=== PATIENT | male | born 1950 | race Caucasian/White ===

== ENCOUNTER 2019-10-04 13:10 | Outpatient (CLI) | payer MEDICARE, SELFPAY ==
--- NOTE | ~2019-10-04 | MR_ITS ---
EXAMINATION: MR shoulder RT wo con DATE: 10/04/2019 14:25 INDICATION: Unspecified injury of right shoulder and upper arm. Right shoulder pain. TECHNIQUE: Magnetic resonance imaging (MRI) of the right shoulder was performed without intravenous c ontrast. Sequences included axial PD-weighted FS FSE, coronal oblique PD-weighted FS FSE and T2-weigh alondra FS FSE, and sagittal oblique T2-weighted FS FSE and T1-weighted FSE. COMPARISON: None. FINDINGS: Coracoacromial arch: The acromion undersurface is curved in morphology (type II). There is severe acromioclavicular joint osteoarthritis including inferiorly directed osteophytes. Subacromial spurring is noted. There is mil d subacromial/subdeltoid bursitis. Rotator cuff: There is moderate supraspinatus tendinopathy and mild infraspinatus tendinopathy. Teres minor tendon is normal. There is severe subscapularis tendinopathy with small interstitial tear. There is mild fat ty atrophy of teres minor muscle belly, consistent with quadrilateral space syndrome. Biceps tendon and glenoid labrum: There is a complete tear of biceps tendon, which is absent from the bicipital groove. There is a tear of the superior labrum from 10:00 to 12:00 (SLAP tear). Fluid: There is a moderate-sized glenohumeral joint effusion. Bones/cartilage: There is deep partial thickness cartilage loss of anteroinferior and central glenoid with mild subcho ndral edema-like marrow signal intensity. There is shallow partial-thickness cartilage loss of ciarra l head. Marginal osteophytes are noted. There is bone marrow edema in lesser tuberosity. IMPRESSION: 1. Severe rotator cuff tendinopathy with small interstitial tear of subscapularis tendon. 2. Moderate glenohumeral joint chondrosis. 3. Complete tear of proximal biceps tendon. 4. Severe osteoarthritis of acromioclavicular joint. 5. Mild subacromial/subdeltoid bursitis. 6. Moderate-sized glenohumeral joint effusion. 7. Mild fatty atrophy of teres minor muscle belly, consistent with quadrilateral space syndrome. Reviewed, dictated and finalized at location A. IMPRESSION: 1. Severe rotator cuff tendinopathy with small interstitial tear of subscapular is tendon. 2. Moderate glenohumeral joint chondrosis. 3. Complete tear of proximal biceps tendon. 4. Severe osteoarthritis of acromioclavicular joint. 5. Mild subacromial/subdeltoid bursitis. 6. Moderate-sized glenohumeral joint effusion. 7. Mild fatty atrophy of teres minor muscle belly, consistent with quadrilatera l space syndrome.
== END 2019-10-04 13:11 | disposition home or self-care (01) ==
LOC: ANHIMG 13:18
PROVIDERS: PCP Family Medicine; Visit Provider Physician Assistant Medical
DX: S46.211A Strain of muscle, fascia and tendon of other parts of biceps, right arm, initial encounter (principal); X58.XXXA Exposure to other specified factors, initial encounter; M19.011 Primary osteoarthritis, right shoulder; M75.51 Bursitis of right shoulder; M25.411 Effusion, right shoulder
CPT/HCPCS: 73221

== ENCOUNTER 2020-04-23 10:56 | Outpatient (CLI) | payer MEDICARE, SELFPAY ==
--- NOTE | ~2020-04-23 | XR_ITS ---
EXAMINATION: XR lumbar spine 6V w bending DATE: 04/23/2020 11:19 INDICATION: Low back pain TECHNIQUE: Anteroposterior, lateral in neutral, flexion and extension, and bilateral oblique views of the lumbar spine, and cone-down lateral view of the lumbosacral junction were obtained. COMPARISON: None. FINDINGS: There are 2 mm of retrolisthesis of L4 on L5. No laxity is present with flexion or extensio n. The vertebral body heights are normal. There is mild loss of intervertebral disc space height at L 1-2 and L2-3. There is advanced facet osteoarthritis in the lower lumbar spine. Small degenerative os teophytes project from the anterior endplates of multiple vertebral bodies. Stones measuring up to 4 mm are noted in the left kidney. The bowel gas pattern is normal. IMPRESSION: 1. Mild lumbar spondylosis. 2. Left nephrolithiasis. Reviewed, dictated and finalized at location A. BALL INSPECTOR
== END 2020-04-23 10:57 | disposition home or self-care (01) ==
LOC: ANHIMG 11:03
PROVIDERS: PCP Family Medicine; Visit Provider Family Medicine
DX: M54.41 Lumbago with sciatica, right side (principal); G89.29 Other chronic pain; M47.896 Other spondylosis, lumbar region; N20.0 Calculus of kidney
CPT/HCPCS: 72114

== ENCOUNTER 2020-05-11 14:20 | Outpatient (CLI) | payer MEDICARE, SELFPAY ==
--- NOTE | ~2020-05-11 | MR_ITS ---
EXAMINATION: MR lumbar spine wo con EXAM DATE: 05/11/2020 15:07 INDICATION: Right leg pain, radiculopathy. Low back pain. TECHNIQUE: Multi-sequential, multiplanar MR images of the lumbar spine were obtained without contrast . Sagittal T1, T2, T2 fat saturation images. Axial T2 weighted images. There is no prior study for comparison. FINDINGS: There is moderate disc disease L1-2, mild at the other lumbar levels. There is a 10 mm syno vial cyst projecting into the spinal canal from the left L4-5 facet joint contributing to severe cent ral canal stenosis at that level. No spondylolysis. The conus medullaris terminates at the L1 level a nd has normal signal intensity and morphology. There is 2 mm retrolisthesis L1 on L2. There are no s uspicious marrow signal abnormalities. Paraspinal soft tissue is unremarkable. Level by level evaluation: T12-L1: There is a minimal diffuse disc bulge. Facet arthropathy: Mild. Neural foraminal stenosis: No stenosis. Central canal stenosis: No stenosis. L1-L2: There is a mild diffuse disc bulge. Facet arthropathy: Mild. Neural foraminal stenosis: Mild bilateral. Central canal stenosis: Mild. L2-L3: There is a mild to moderate diffuse disc bulge. Facet arthropathy: Mild to moderate. Neural foraminal stenosis: Mild bilateral. Central canal stenosis: Mild. L3-L4: There is a moderate diffuse disc bulge. Facet arthropathy: Moderate to severe. Ligamentum flavum enlargement . Neural foraminal stenosis: Moderate bilateral. Central canal stenosis: Moderate. L4-L5: There is a moderate diffuse disc bulge. Facet arthropathy: Severe . Ligamentum flavum enlargement. Neural foraminal stenosis: Moderate bilateral. Central canal stenosis: Severe. L5-S1: There is a moderate diffuse disc bulge. Facet arthropathy: Severe right, moderate to severe left. Neural foraminal stenosis: Moderate to severe bilateral, right greater than left. Central canal stenosis: Mild to moderate. IMPRESSION: 1. L4-5 severe central canal stenosis from bulge, arthropathy, and large left synovial cyst. 2. Neural foramen are most narrowed at L5-S1. Reviewed, dictated and finalized at location A. IT SPECIALIST
== END 2020-05-11 14:21 | disposition home or self-care (01) ==
PROVIDERS: PCP Family Medicine; Visit Provider Nurse Practitioner Family
DX: M54.10 Radiculopathy, site unspecified (principal); M48.061 Spinal stenosis, lumbar region without neurogenic claudication; M71.38 Other bursal cyst, other site
CPT/HCPCS: 72148

== ENCOUNTER 2020-05-21 13:08 | Outpatient (CLI) | payer MEDICARE, SELFPAY ==
[2020-05-21 14:15] LABS: Basophils Percent Auto 0.4 % (0.2-1.2); Eosinophils Absolute Auto 0.1 K/mm3 (0-0.3); Eosinophils Percent Auto 0.7 % (0-4.4); Hematocrit 42.3 % (42.0-52.0); Hemoglobin 14.6 g/dL (14.0-18.0); Immature Granulocyte Absolute 0.04 K/mm3 (0.00-0.031); Immature Granulocyte Percent A 0.6 % (0-0.5); Lymphocytes Percent Auto 20.4 % (18.3-44.2); Mean Corpuscular HGB Conc 34.5 g/dl (32-36); Mean Corpuscular Hemoglobin 32.8 pg (26-34); Mean Corpuscular Volume 95.1 fl (80-100); Mean Platelet Volume 9.9 fl (7.4-10.4); Monocytes Absolute Auto 0.3 K/mm3 (0.1-0.6); Monocytes Percent Auto 4.1 % (2.6-8.5); Neutrophils Absolute Auto 5.1 K/mm3 (1.3-6.7); Neutrophils Percent Auto 73.8 % (45.5-73.1); Platelet Count Result 177 k/mm3 (150-375); Red Blood Count 4.45 M/mm3 (4.6-6.20); Red Cell Distribution Width 11.9 % (11.5-14.5); White Blood Count 6.9 K/mm3 (4.5-10.0)
[2020-05-21 14:23] LABS: Alanine Aminotransferase 46 U/L (4-50); Albumin Level 4.2 g/dL (3.5-5.1); Alkaline Phosphatase 65 U/L (38-126); Anion Gap 4 mmol/L (8-16); Aspartate Amino Transferase 36 U/L (17-59); Bilirubin,Total 0.5 mg/dL (0.2-1.3); Blood Urea Nitrogen 9 mg/dL (9-20); Calcium 9.2 mg/dL (8.4-10.2); Carbon Dioxide 33 mmol/L (22-30); Chloride 100 mmol/L (98-107); Estimated Glomerular Filt Rate > 60; Glucose 154 mg/dL (75-110); Potassium 3.7 mmol/L (3.4-5.0); Sodium 137 mmol/L (137-145)
[2020-05-24 07:55] LABS: FSH 9.1 mIU/mL (1.6-8.0); LH 3.2 mIU/mL (1.6-15.2)
[2020-05-25 13:34] LABS: Testosterone Free 55.9 pg/mL (35.0-155.0); Testosterone Total 508 ng/dL (250-1100)
== END 2020-05-21 13:09 | disposition home or self-care (01) ==
PROVIDERS: PCP Family Medicine; Visit Provider Family Medicine
DX: R61 Generalized hyperhidrosis (principal)
CPT/HCPCS: 36415; 80053; 83001; 83002; 84402; 84403; 84443; 85025

== ENCOUNTER 2020-07-12 13:09 | Outpatient (CLI) | payer MEDICARE, SELFPAY ==
--- NOTE | 2020-07-12 13:30 | ECG_ITS ---
Measurements Intervals [place] Rate: 64 P: 54 VT: 149 QRS: 6 QRSD: 97 T: 52 QT: 384 QTc: 396 Interpretive Statements SINUS RHYTHM NONSPECIFIC T-WAVE ABNORMALITY- INFERIOR LEADS BASELINE WANDER- V3 BORDERLINE ECG Electronically Signed On 07-12-2020 14:35:37 CDT by Rom Ruiz D.O.
[2020-07-12 13:42] LABS: Hematocrit 40.1 % (42.0-52.0); Hemoglobin 13.7 g/dL (14.0-18.0); Mean Corpuscular HGB Conc 34.2 g/dl (32-36); Mean Corpuscular Hemoglobin 32.6 pg (26-34); Mean Corpuscular Volume 95.5 fl (80-100); Mean Platelet Volume 9.8 fl (7.4-10.4); Platelet Count Result 189 k/mm3 (150-375); Red Cell Distribution Width 11.9 % (11.5-14.5); White Blood Count 5.1 K/mm3 (4.5-10.0)
[2020-07-12 13:52] LABS: Alanine Aminotransferase 33 U/L (4-50); Albumin Level 4.4 g/dL (3.5-5.1); Alkaline Phosphatase 60 U/L (38-126); Anion Gap 5 mmol/L (8-16); Aspartate Amino Transferase 36 U/L (17-59); Bilirubin,Total 0.7 mg/dL (0.2-1.3); Blood Urea Nitrogen 17 mg/dL (9-20); Calcium 9.2 mg/dL (8.4-10.2); Carbon Dioxide 29 mmol/L (22-30); Chloride 105 mmol/L (98-107); Estimated Glomerular Filt Rate 60; Glucose 90 mg/dL (75-110); Potassium 4.1 mmol/L (3.4-5.0); Sodium 139 mmol/L (137-145)
== END 2020-07-12 13:10 | disposition home or self-care (01) ==
PROVIDERS: PCP Family Medicine; Visit Provider Nurse Practitioner Family
DX: Z01.818 Encounter for other preprocedural examination (principal)
CPT/HCPCS: 36415; 80053; 85027; 93005

== ENCOUNTER 2020-09-30 13:38 | Outpatient (CLI) | payer MEDICARE, SELFPAY ==
[2020-09-30 15:25] LABS: SARS-CoV-2 RNA PCR Negative (Negative)
== END 2020-09-30 13:39 | disposition home or self-care (01) ==
LOC: CHSLAB 13:41
PROVIDERS: PCP Family Medicine; Visit Provider Nurse Practitioner Family
DX: J02.9 Acute pharyngitis, unspecified (principal); Z20.822 Contact with and (suspected) exposure to COVID-19
CPT/HCPCS: C9803; U0003; U0005

== ENCOUNTER 2022-08-01 09:38 | Outpatient (CLI) | payer MEDICARE, SELFPAY ==
--- NOTE | 2022-08-01 | ECG_ITS ---
Measurements Intervals [place] Rate: 53 P: 61 SD: 152 QRS: 32 QRSD: 101 T: 72 QT: 416 QTc: 393 Interpretive Statements SINUS BRADYCARDIA CANNOT RULE OUT SEPTAL INFARCT, AGE INDETERMINATE BORDERLINE T WAVE ABNORMALITY- HIGH LATERAL LEADS ABNORMAL ECG COMPARED TO ECG 07/12/2020 13:39:20 SINUS BRADYCARDIA NOW PRESENT MYOCARDIAL INFARCT FINDING NOW PRESENT Electronically Signed On 08-01-2022 10:37:09 CDT by Rom Ruiz D.O.
[2022-08-01 10:10] LABS: Hematocrit 39.7 % (42.0-52.0); Hemoglobin 13.6 g/dL (14.0-18.0); Mean Corpuscular HGB Conc 34.3 g/dl (32-36); Mean Corpuscular Hemoglobin 32.9 pg (26-34); Mean Corpuscular Volume 95.9 fl (80-100); Mean Platelet Volume 9.4 fl (7.4-10.4); Platelet Count Result 150 k/mm3 (150-375); Red Blood Count 4.14 M/mm3 (4.6-6.20)
[2022-08-01 10:31] LABS: Alanine Aminotransferase 30 U/L (6-50); Albumin Level 4.3 g/dL (3.5-5.1); Alkaline Phosphatase 65 U/L (38-126); Anion Gap 6 mmol/L (8-16); Aspartate Amino Transferase 34 U/L (17-59); Bilirubin,Total 0.9 mg/dL (0.2-1.3); Blood Urea Nitrogen 11 mg/dL (9-20); Calcium 8.8 mg/dL (8.4-10.2); Carbon Dioxide 28 mmol/L (22-30); Chloride 104 mmol/L (98-107); Estimated Glomerular Filt Rate > 60; Glucose 86 mg/dL (65-110); Potassium 4.1 mmol/L (3.4-5.0); Sodium 138 mmol/L (137-145)
[2022-08-01 11:00] LABS: Prostate Specific Antigen 4.6 ng/mL (< OR = 4.0)
== END 2022-08-01 09:39 | disposition home or self-care (01) ==
PROVIDERS: PCP Family Medicine; Visit Provider Nurse Practitioner Family
DX: Z01.818 Encounter for other preprocedural examination (principal); Z12.5 Encounter for screening for malignant neoplasm of prostate
CPT/HCPCS: 36415; 80053; 84153; 85027; 93005; G0103

== ENCOUNTER 2024-05-24 19:33 | Outpatient (CLI) | payer MEDICARE, SELFPAY ==
--- OUTSIDE RECORDS SUMMARY | 2024-05-24 19:38 | XMS_ITS | Encounter Summary ---
Author Organization [facility] Address [address] [place] [address] Care Team Providers Care Access Service Representative Name Role Phone Davida Power MD Primary Care Provider Encounter Details Date Type Department Care Team (Late st Contact Info) Description 09/29/2022 Lab Requisition [facility] - DermPath Lab [address] [place] [address] Aldo Wallis MD [address] [place] [address] Social History Tobacco Use Types Packs/Day Years Used Date Smoking Tobacco: Former Cigarettes Q uit: 03/12/1974 Smokeless Tobacco: Never Alcohol Use Standard Drinks/Week Comments Yes 1 (1 standard drink = 0.6 oz pur e alcohol) Sex and Gender Information Value Date Recorded Sex Assigned at Not on file Gender Identity Not on file Sexual Orientation Not on file documented as of this encounter Plan of Treatment Not on file documented as of this encounter Procedures Procedure Name Priority Date/Time Associated Diagnosis Comments DERMATOPATHOLOGY Routine 09/27/2022 12:0 0 AM CDT documented in this encounter Results * DERMATOPATHOLOGY (09/27/2022 12:00 AM CDT) Case Report Dermatopathology Report Case: [id number] Authorizing Provider: Aldo Wallis MD Collected: 09/27/2022 12:00 AM Ordering Location: [facility] Derm[facility] Lab Received: 09/29/2022 11:56 AM Pathologist: Quyen Fulton MD Specimen: Skin, left shoulder 2:41 PM CDT DERMATOPATHOLOGY LABORATORY Final Diagnosis Specimen A. 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 Check Margins. 3 2:41 PM T DERMATOPATHOLOGY LABORATORY Gross Description Specimen A: Received is one formalin filled container labeled with the patient's name and designated left shoulder. The specimen consists of a shave biopsy measuring 4x3x2 mm. Jar 0. 3 2:41 PM T DERMATOPATHOLOGY LABORATORY Microscopic Description Specimen A. SKIN, left shoulder: There is hyperkeratosis alternating with parakeratosis. There is epidermal hyperplasia with disorderly maturation of keratinocytes with nuclear pleomorphism confined to the lower half of the epidermis. This lesion is present at the margin of the specimen. The dermis shows a band-like, chronic inflammatory infiltrate with occasional apoptotic keratinocytes and some basal vacuolar alteration. Additional deeper sections were obtained and reviewed. 3 2:41 PM T DERMATOPATHOLOGY LABORATORY Disclaimer An external and internal positive and negative controls are appropriate for the histochemical, immunohistochemical and immunofluorescence stain(s) in this case (if any), except where stated explicitly. The performance characteristics of the stain(s) cited in this report were developed and its performance characteristic determined by the Dermatopathology Laboratory at [facility], directed by Dr. Denny Zapata. These tests need not be, and therefore are not, approved by the [place] Food and Drug Administration. The tests are used for clinical purposes. Billing Codes Specimen Charges Stain Charges 52740 1 3 2:41 PM CDT DERMATOPATHOLOGY LABORATORY Embedded Images 3 2:41 PM CDT DERMATOPATHOLOGY LABORATORY Pathology/Cytolog y TISSUE SPECIMEN FROM SKIN / Unknown 09/27/2022 09/29/2022 11:56 AM CDT Aldo Wallis MD LAB - PATHOLOGY/CYTO LOGY ORDERABLES DERMATOPATHOLOGY LABORATORY [facility] - Department of Dermatology [address] [phone] documented in this encounter Visit Diagnoses Not on filedocumented in this encounter Care Teams Access Service Representative Relationship Specialty Start Date End Date Davida Power MD [address] [place] [phone] PCP - General 09/03/13 documented as of this encounter
--- OUTSIDE RECORDS SUMMARY | 2024-05-24 19:38 | XMS_ITS | Clinical Summary ---
Author Organization [facility] Address [address] [place] [address] Care Team Providers Care Insurance Healthcare Representative Name Role Phone Davida Power MD Primary Care Provider Source Comments [facility],non-owned Affiliates and Associated Physician Practices is amultiple site organization consisting of ambulatory clinics and hospital sitesin [place], [place], [place] and [place]. This disclosure is being madepursuant to the Care Everywhere program and may not contain all information available regarding this patient. Last updated 17.[facility] Medications * Be aware that medications may not be up to date on this document. Alwaysverify current medications with the patient. Medication Sig Dispensed Refills Start Date End Date Status tamsulosin (FLOMAX) 0.4 MG capsule 06/20/2016 Active Misc Natural Products (GERMANIUM) 10 MG Take by mouth. 06/29/2016 Act vianca terbinafine (LAMISIL) 250 MG tablet 05/25/2016 Active aspirin EC (ECOTRIN) 325 MG tablet Take by mouth. 06/29/2016 Active [place]-3 Fatty Acids (FISH OIL) 1000 MG capsule Take by mouth. 06/29/2016 Active diclofenac sodium EC (VOLTAREN) 75 MG tablet 06/09/2016 A ctive triamcinolone (NASACORT AQ) 55 MCG/ACT nasal inhaler 06/29/2016 Active Family History Medical History Relation Name Comments Asthma Brother Asthma Father Arthritis - Rheumatoid Mother Cancer Mother Diabetes Mother Glaucoma Mother Hearing Loss Mother Heart Disease Mother High Cholesterol Mother Hypertension Mother Kidney Disease Mother Osteoporosis Mother Relation Name Status Comments Brother Father Mother Social History Tobacco Use Types Packs/Day Years Used Date Smoking Tobacco: Former Cigarettes Q uit: 03/12/1974 Smokeless Tobacco: Never Alcohol Use Standard Drinks/Week Comments Yes 1 (1 standard drink = 0.6 oz pur e alcohol) Sex and Gender Information Value Date Recorded Sex Assigned at Not on file Gender Identity Not on file Sexual Orientation Not on file Last Filed Vital Signs Vital Sign Reading Time Taken Comments Blood Pressure 128/83 06/29/2016 4:52 PM CDT Pulse 59 06/29/2016 4:52 PM CDT Temperature - - Respiratory Rate - - Oxygen Saturation - - Inhaled Oxygen Concentration - - Weight 88.5 kg (195 lb) 06/29/2016 4:52 PM CDT Height 175.3 cm (5' 9 ) 06/29/2016 4:52 PM CDT Body Mass Index 28.8 06/29/2016 4:52 PM CDT Plan of Treatment Health Maintenance Due Date Last Done Comments COLOGUARD (AGES 45-75) - COL ON CA SCREENING 1950 COLON MONITORING 1952 COLONOSCOPY - COLON CA SCREENING 1952 CT COLONOGRAPHY - COLON CA SCREENING 1950 Colorectal Cancer Screening 1950 FIT - COLON CA SCREENING 1952 FLEX SIG - COLON CA SCREENING 1952 LIPID TESTING 1950 HEPATITIS C SCREENING 01/10/1970 DTAP/TDAP/TD VACCINES (1 - Tdap) 01/14/1971 PNEUMOCOCCAL VACCINE 50+ (1 of 1 - PCV) 01/14/2002 ZOSTER VACCINE (1 of 2) 01/14/2002 AAA SCREENING 01/14/2017 COVID-19 VACCINE ( - 2023-2 5 season) 2023 INFLUENZA VACCINE (#1) 2023 DEPRESSION SCREENING 03/12/2024 MEDICARE AWV CALENDAR YEAR 2024 Respiratory Syncytial Virus (RSV) Vaccine Pt: or over 60 yrs (1 - 1-dose 75+ series) 01/14/2027 HEPATITIS B VACCINE Aged Out No longe r eligible based on patient's age to complete this topic HIB VACCINE Aged Out No longer eligi ble based on patient's age to complete this topic HPV VACCINE Aged Out No longer eligi ble based on patient's age to complete this topic MENINGOCOCCAL (Group B) VACC INE SHARED DECISION-MAKING Aged Out No longer eligibl e based on patient's age to complete this topic MENINGOCOCCAL GROUPS A/C/Y/W VACCINE Aged Out No longer eligible b ased on patient's age to complete this topic Care Teams Insurance Healthcare Representative Relationship Specialty Start Date End Date Davida Power MD [address] [place] [phone] PCP - General 09/03/13
--- OUTSIDE RECORDS SUMMARY | 2024-05-24 19:38 | XMS_ITS | Clinical Summary ---
Author Organization [facility] Address [facility] [place] [address] Care Team Providers Care Director Of Manufacturing Operations Name Role Phone Aldo Wallis MD Primary Care Provider [phone] Allergies No known active allergies Medications methylphenidat e CR (METADATE ER) 10 MG tabletIndicati ons:adhd Take 1 tablet (10 mg total) by mouth every morning. Indications: adhd Active atorvastatin (LIPITOR) 40 MG tabletIndicati ons:cholestero l Take 1 tablet (40 mg total) by mouth every morning. Indications: cholesterol Active gabapentin (NEURONTIN) 300 MG capsuleIndicat ions:arthritis Take 1 capsule (300 mg total) by mouth 4 (four) times daily. Indications: arthritis Active diclofenac EC (VOLTAREN) 75 MG tabletIndicati ons:arthritis Take 1 tablet (75 mg total) by mouth 2 (two) times daily. Indications: arthritis Active levothyroxine (SYNTHROID) 25 MCG tabletIndicati ons:thyroid Take 1 tablet (25 mcg total) by mouth every morning. Indications: thyroid Active fexofenadine (LORRI) 180 MG tablet Take 1 tablet (180 mg total) by mouth as needed for Allergies. Active Multiple Vitamins-Silica Filter Operator als (MULTIVITAMIN ADULTS 50+) TabIndications :supplement Take 1 tablet by mouth every evening. Indications: supplement Active prednisoLONE acetate (PRED FORTE) 1 % ophthalmic suspensionIndi cations:post op surgery drop Place 1 drop into the left eye see administration instructions. Indications: post op surgery drop Active ketorolac (ACULAR) 0.5 % ophthalmic solutionIndica tions:post op surgery drop Place 1 drop into the left eye 2 (two) times daily. Indications: post op surgery drop Active Active Problems No known active problems Encounters Date Type Department Care Team Description 04/08/2024 8:21 AM EDUCATIONAL ASSISTANT - 04/08/2024 8:50 AM EDUCATIONAL ASSISTANT Surgery [address] [address] Gregory Hays Jr., MD CATARACT REMOVAL WITH IOL IMPLANT 04/08/2024 8:21 AM EDUCATIONAL ASSISTANT Anesthesia Event [address] [address] Yolanda Hendrix SWAGING MACHINE OPERATOR 04/08/2024 7:21 AM EDUCATIONAL ASSISTANT - 04/08/2024 9:09 AM EDUCATIONAL ASSISTANT Hospital Encounter [address] [address] Gregory Hays Jr., MD Discharge Disposition: Home or Self Care (Routine Discharge) 04/08/2024 Travel 04/02/2024 8:48 AM EDUCATIONAL ASSISTANT Anesthesia Event [address] [address] Andie Jones, SWAGING MACHINE OPERATOR 04/02/2024 8:44 AM EDUCATIONAL ASSISTANT - 04/02/2024 9:13 AM EDUCATIONAL ASSISTANT Surgery [address] [address] Gregory Hays Jr., MD CATARACT REMOVAL WITH IOL IMPLANT 04/02/2024 7:29 AM EDUCATIONAL ASSISTANT - 04/02/2024 9:34 AM EDUCATIONAL ASSISTANT Hospital Encounter [address] [address] Gregory Hays Jr., MD Discharge Disposition: Home or Self Care (Routine Discharge) 04/02/2024 Travel from Last 3 Months Family History Medical History Relation Comments Heart Disease Father Hyperlipidemia Father MD Father Cancer Mother Breast Diabetes Mother Relation Status Comments Father (Age 43) MD Mother Social History Tobacco Use Types Packs/Day Years Used Date Smoking Tobacco: Never Smokeless Tobacco: Never Tobacco Cessation:Counseling Given: Not Answered Alcohol Use Standard Drinks/Week Comments Yes 0 (1 standard drink = 0.6 oz pur e alcohol) Occasionally Sex and Gender Information Value Date Recorded Sex Assigned at Male 03/26/2024 10:51 AM EDUCATIONAL ASSISTANT Legal Sex Male 6:59 PM CDT Gender Identity Not on file Sexual Orientation Not on file Last Filed Vital Signs Vital Sign Reading Time Taken Comments Blood Pressure 125/81 04/08/2024 9:00 AM EDUCATIONAL ASSISTANT Pulse 58 04/08/2024 9:00 AM EDUCATIONAL ASSISTANT Temperature 36.8 C (98.2 F) 04/08/2024 8:45 AM EDUCATIONAL ASSISTANT Respiratory Rate 18 04/08/2024 9:00 AM EDUCATIONAL ASSISTANT Oxygen Saturation 97% 04/08/2024 9:00 AM EDUCATIONAL ASSISTANT Inhaled Oxygen Concentration - - Weight 77 kg (169 lb 12.1 oz) 04/08/2024 7:52 AM EDUCATIONAL ASSISTANT Height 173 cm (5' 8.11 ) 04/08/2024 7:52 AM EDUCATIONAL ASSISTANT Body Mass Index 25.73 04/08/2024 7:52 AM EDUCATIONAL ASSISTANT Plan of Treatment Health Maintenance Due Date Last Done Comments Colorectal Cancer Screening Colonoscopy (10 Years) 1952 Hepatitis C 01/14/1970 DTaP, Tdap and Td Vaccines ( 1 - Tdap) 01/14/1971 Zoster Vaccines (1 of 2) 01/14/2002 Annual Medicare Wellness Visit 01/14/2017 Pneumococcal Vaccine: 65+ Years (1 of 1 - PCV) 01/14/2017 COVID-19 Vaccine (3 - 2023-2 5 season) 2023 05/21/2020, 04/30/2020 Influenza Adult (#1) 2023 RSV Immunization or 60+ Years (1 - 1-dose 75+ series) 01/14/2027 Meningococcal B Vaccine Aged Out No l onger eligible based on patient's age to complete this topic Meningococcal Vaccine Aged Out No roma avelina eligible based on patient's age to complete this topic RSV Immunizations Under 20 Months Aged Out No longer eligible b ased on patient's age to complete this topic Medical Devices Implanted Type Area Rent Control Office Manager Device Identifier Shelf Expiration Date Model / Serial / Lot Iol Phillip [id number] - [id number] Implanted:Qty: 1 on 04/02/2024 by Gregory Hays Jr., MD at [facility] Lens Right: Eye [employer] [id number] 11/17/2027 [id number] / [id number] / Description:Confirmed with vadim hays and epic Iol Phillip [id number] - [id number] Implanted:Qty: 1 on 04/08/2024 by Gregory Hays Jr., MD at [facility] Lens Left: Eye [employer] [id number] 12/09/2026 [id number] / [id number] / Description:Confirmed with vadim hays and epic Procedures Procedure Name Priority Date/Time Associated Diagnosis Comments REMV CATARACT EXTRACAP,INSERT LENS 04/08/2024 8:20 AM EDUCATIONAL ASSISTANT CATARACT Case Notes [place] SY60WF 19.0 IOL REMV CATARACT EXTRACAP,INSERT LENS 04/02/2024 8:44 AM EDUCATIONAL ASSISTANT CATARACT Case Notes [place] SY60WF 20.0 IOL from Last 3 Months Insurance Advance Directives * Full Code (Latest Code Status on File) Date Activated Date Inactivated Comments 04/08/2024 8:56 AM 04/08/2024 11:16 AM * Full Code Date Activated Date Inactivated Comments 04/02/2024 9:26 AM 04/02/2024 11:39 AM Care Teams Director Of Manufacturing Operations Relationship Specialty Start Date End Date Aldo Wallis MD [address] [place] [address] PCP - General FAMILY PRACTICE 03/26/24
--- OUTSIDE RECORDS SUMMARY | 2024-05-24 19:38 | XMS_ITS | Data Portability ---
Author Organization [facility], [address] [place]rology ([place]) Address [address] [place] [address] Care Team Providers Care Batch Plant Supervisor Name Role Phone JOSE TRIANA Primary Care Provider Assessment Encounter Date Assessment Date Assessment LastModified by Organization Details LastModified Time 08/02/2023 08/02/2023 1. Berry catheter to be removed when the urine is consistently clear. 2. [place] 5/325 every eight hours as needed per request of the patient s . 3. Silodosin 10 mg daily. cristopher [email or web address] Not available 08/08/2023 11:53:58 09/03/2023 09/03/2023 I advised the patient to have a trial of discontinuing the alfuzosin. I also gave him a month supply of Myrbetriq 25 mg daily. The patient will return in one month for an evaluation of symptoms and for an exam. cristopher [email or web address] Not available 09/04/2023 12:06:31 10/09/2023 10/09/2023 A 6-week trial of Gemtesa 75 mg every evening. The patient will return in 5 weeks for an evaluation of symptoms and for an exam along with postvoid residual volume estimate. ra lockhart Not available 10/12/2023 15:42:39 Plan of Treatment Reminders Order Date Submit Date Provider Last Modified By Organization Details Last Modified Time Details Appointments None record ed. Lab None record ed. Referral None record ed. Procedures None record ed. Surgeries None record ed. Imaging None record ed. Medication Orders None record ed. Patient TargetsNo targets recorded. Patient InstructionsNo instructions recorded. Reason for Referral None Reported. Results Created Date Observation Date Name Description Value Unit Range Abnormal Flag Note LastModifiedBy Organization Detail LastModifiedTime 10/09/19 24 10/09/2023 urina lysis compl ete, refle x cultu re urinalysis w/reflex cult LOW LEVEL S OF HEMOG LOBIN IN ABSEN CE OF HEMAT URIA MAY NOT BE CLIN[facility] YON[facility] SHARON [facility] Not Available [facility] [address] [place] [address], [id number], 10/09/2023 17:32:23 10/09/19 24 10/09/2023 urina lysis compl ete, refle x cultu re color YELLOW Not Available [facility] [address] [place] [address], [id number], 10/09/2023 17:32:23 10/09/19 24 10/09/2023 urina lysis compl ete, refle x cultu re clarity CLEAR Not Available [facility] [address] [place] [address], [id number], 10/09/2023 17:32:23 10/09/19 24 10/09/2023 urina lysis compl ete, refle x cultu re pH 6.0 5.0-7. 5 Not Available [facility] [address] [place] [address], [id number], 10/09/2023 17:32:23 10/09/19 24 10/09/2023 urina lysis compl ete, refle x cultu re specific gravity 1.022 1.000- 1.030 Not Available [facility] [address] [place] [address], [id number], 10/09/2023 17:32:23 10/09/19 24 10/09/2023 urina lysis compl ete, refle x cultu re blood NEGATI VE negati ve Not Available [facility] [address] [place] [address], [id number], 10/09/2023 17:32:23 10/09/19 24 10/09/2023 urina lysis compl ete, refle x cultu re bilirubin NEGATI VE negati ve Not Available [facility] [address] [place] [address], [id number], 10/09/2023 17:32:23 10/09/19 24 10/09/2023 urina lysis compl ete, refle x cultu re urobilinogen 1.0 0.2-1. 0 Not Available [facility] [address] [place] [address], [id number], 10/09/2023 17:32:23 10/09/19 24 10/09/2023 urina lysis compl ete, refle x cultu re ketone TRACE negati ve abnormal Not Available [facility] [address] [place] [address], [id number], 10/09/2023 17:32:23 10/09/19 24 10/09/2023 urina lysis compl ete, refle x cultu re glucose NEGATI VE negati ve Not Available [facility] [address] [place] [address], [id number], 10/09/2023 17:32:23 10/09/19 24 10/09/2023 urina lysis compl ete, refle x cultu re protein NEGATI VE negati ve Not Available [facility] [address] [place] [address], [id number], 10/09/2023 17:32:23 10/09/19 24 10/09/2023 urina lysis compl ete, refle x cultu re nitrite NEGATI VE negati ve Not Available [facility] [address] [place] [address], [id number], 10/09/2023 17:32:23 10/09/19 24 10/09/2023 urina lysis compl ete, refle x cultu re leukocytes 1+ negati ve abnormal Not Available [facility] [address] [place] [address], [id number], 10/09/2023 17:32:23 10/09/19 24 10/09/2023 urina lysis compl ete, refle x cultu re review * Micro scopi c resul ts revie wed by Techn alise krause. Not Available [facility] [address] [place] [address], [id number], 10/09/2023 17:32:23 10/09/19 24 10/09/2023 urina lysis compl ete, refle x cultu re RBC 0-2 0-2/hp f Not Available [facility] [address] [place] [address], [id number], 10/09/2023 17:32:23 10/09/19 24 10/09/2023 urina lysis compl ete, refle x cultu re WBC 0-5 0-5/hp f Not Available [facility] [address] [place] [address], [id number], 10/09/2023 17:32:23 10/09/19 24 10/09/2023 urina lysis compl ete, refle x cultu re squamous epithelial 0-2 0-10/h pf Not Available [facility] [address] [place] [address], [id number], 10/09/2023 17:32:23 10/09/19 24 10/09/2023 urina lysis compl ete, refle x cultu re bacteria NONE SEEN none Not Available [facility] [address] [place] [address], [id number], 10/09/2023 17:32:23 10/09/19 24 10/09/2023 urina lysis compl ete, refle x cultu re hyaline cast 0-2 0-2/lp f Not Available [facility] [address] [place] [address], [id number], 10/09/2023 17:32:23 10/09/19 24 10/09/2023 urina lysis compl ete, refle x cultu re calcium oxalate crystal PRESEN T absent abnormal Not Available [facility] [address] [place] [address], [id number], 10/09/2023 17:32:23 10/09/19 24 10/11/2023 cultu re + sensi tivit y, urine urine culture and sens. STEVE L URINE No growt h after overn ight incub ation No growt h after 2 night s incub ation Not Available [facility] [address] [place] [address], [id number], 10/11/2023 09:26:51 10/09/19 24 10/10/2023 cultu re + sensi tivit y, urine urine culture and sens. PREL IM URINE No growt h after overn ight incub ation Not Available [facility] [address] [place] [address], [id number], 10/10/2023 15:34:51 08/15/19 24 imagi ng/di agnos tic resul t No observ ation record ed. [email or web address] Not Available 0 08/15/2023 11:21:44 Result Notes None recorded. Problems Name Problem SNOMED Code Status Onset Date Resolution Date Notes Provider Name and Address Organization Details Recorded Time Overactive urinary bladder 547028520 [facility] Lower urinary tract symptoms due to benign prostatic hypertrophy 6340164005934 1 [facility] 15:26:26 Spasm of urinary bladder 940813423 Active 2023 Laura Godoy [facility] 4 18:26:59 Problem Notes None recorded. Procedures Surgical History Date Name Laterality Status Provider Name and Address Organization Details Recorded Time 08/02/19 24 [place] Procedure completed Tatayna Reeves [facility] 08/08/2023 11:53:25 Colonoscopy with biopsy completed Not Available Health Note 10/02/2023 11:14:53 Imaging Results Imaging Date Name Status LastModified by Organiz ation Details LastModified Time 08/15/2023 imaging/diag nostic result completed [email or web address] Information not available 08/15/2023 11:21:44 Procedure Notes None recorded. Medical Equipment None Reported. Medications Name Sig Start Date Stop Date Status Note LastModified by Organization Details LastModified Time atorvastati n 40 mg tablet active Not Available Not Available Not Available methylpheni date 10 mg tablet active Not Available Not Available Not Available hydrocodone 5 mg-acetamin ophen 325 mg tablet Take 1 tablet every 8 hours by oral route as needed. active Not Available Not Available No t Available methylpheni date 5 mg tablet 09/02 completed Not Available Not Available Not Available levothyroxi ne 25 mcg tablet active Not Available Not Available Not Available gabapentin 300 mg capsule active Not Available Not Available Not Available diclofenac sodium 75 mg tablet,amber yed release active Not Available Not Available Not Available diazepam 5 mg tablet TAKE ONE TABLET ONE HOUR BEFORE PROCEDURE 09/02 completed Not Available Not Available Not Available alfuzosin ER 10 mg tablet,exte nded release 24 hr active Not Available Not Available Not Available silodosin 8 mg capsule Take 1 capsule every day by oral route as needed. 09/02 completed Not Available Not Available Not Available Gemtesa 75 mg tablet Take 1 tablet every day by oral route. 2023 active Not Available Not Available Not Avai lable Vitals Date Recorded Body height Body mass index (BMI) Body weight Heart rate Oxygen saturation Oxygen saturation in Arterial blood by Pulse oximetry Systolic blood pressure Diastolic blood pressure Provider Name and Address Organization Details Last Updated DateTime 4 172.72 cm 25.5 kg/m2 30515.5 2 g 66 /min 98 % 98 % 112 mm[Hg] 68 mm[Hg] Maria Esther Echevarria [facility] 4 14:24:41 Date Recorded Body height Heart rate Oxygen saturation Oxygen saturation in Arterial blood by Pulse oximetry Systolic blood pressure Diastolic blood pressure Provider Name and Address Organization Details Last Updated DateTime 4 172.72 cm 62 /min 93 % 93 % 142 mm[Hg] 80 mm[Hg] [facility] 4 16:36:07 Date Recorded Body height Body mass index (BMI) Body weight Heart rate Oxygen saturation Oxygen saturation in Arterial blood by Pulse oximetry Systolic blood pressure Diastolic blood pressure Provider Name and Address Organization Details Last Updated DateTime 4 172.72 cm 26 kg/m2 34305.3 g 72 /min 99 % 99 % 118 mm[Hg] 72 mm[Hg] [facility] 4 10:19:43 Date Recorded Body height Body mass index (BMI) Body weight Body temperature Heart rate Oxygen saturation Oxygen saturation in Arterial blood by Pulse oximetry Systolic blood pressure Diastolic blood pressure Provider Name and Address Organization Details Last Updated DateTime 4 175.26 cm 25.7 kg/m2 52829.0 7 g 95 [degF] 69 /min 96 % 96 % 130 mm[Hg] 82 mm[Hg] Smileyjeremy Lorenzo awcorbin [facility] 4 15:25:11 Social History Question Answer Notes LastModified by Organizat ion Details LastModified Time Do You Have An Advance Directive? No [email or web address] Information not available 10/02/2023 What Is Your Level Of Alcohol Consumption? None [email or web address] Information not available 10/02/2023 What Is Your Level Of Caffeine Consumption? None [email or web address] Information not available 10/02/2023 Are You Currently Employed? 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 Less Than 1 Time Per Week [email or web address] Information not available 10/02/2023 Smokeless Tobacco? Former Smokeless Tobacco User [email or web address] Information not available 10/02/2023 When Did You Quit Smoking? Late 70's [email or web address] Information not available 10/02/2023 Do You Have A Medical Power Of Enamel Dipper? Yes [email or web address] Information not available 10/02/2023 What Was The Date Of Your Most Recent Tobacco Screening? 10/09/2023 [email or web address] Information not available 10/02/2023 What Is Your Relationship Status? [email or web address] Information not available 10/02/2023 Do You Use Any Illicit Or Recreational Drugs? No [email or web address] Information not available 10/02/2023 Sex: Unknown Functional Status Question Answer Note LastModified by Organization D etails LastModified Time What is your exercise level? Moderate [email or web address] Information not available 10/02/2023 Mental Status None recorded. Family History Relationship Description Onset Age of this Age Resolved Age Notes LastModified by Organization Details LastModified Time Mother Arthritis [email or web address] Not available 10/02/2023 11:14:52 Mother Family history of malignant neoplasm [email or web address] Not available 2023 11:14:52 Mother Hypertensive disorder [email or web address] Not available 2023 11:14:52 Brother Asthma [email or web address] Not available 0 10/02/2023 11:14:52 Medical History Condition Response Attention-deficit Hyperactivity Disorder Y High Blood Pressure N Thyroid Problems N COPD N Depression N Anemia N Diabetes N Anxiety Disorder N Bleeding Disorder N Arthritis Y Hyperlipidemia N Cancer N Stroke N Asthma N Seizures N Heart Disease N Fibromyalgia N Osteoporosis N Kidney Disease N Immunizations Vaccine Type Date Status Note Provider Nam e and Address Organization Details Recorded Time COVID-19, mRNA, LNP-S, PF, 30 mcg/0.3 mL dose 04/30/2020 completed Maria Esther Echevarria [facility] 08/02/2023 14:24:54 COVID-19, mRNA, LNP-S, PF, 30 mcg/0.3 mL dose 05/21/2020 completed Maria Esther Echevarria [facility] 08/02/2023 14:24:54 Past Encounters Encounter ID Performer Location Encounter Start Date Encounter Closed Date Diagnosis/Indication Diagnosis SNOMED-CT Code Diagnosis ICD10 Code Diagnosis Note [id number] Anthony Holley MD [address] [place] [address] [place]) [address] [place] [address] 08/02/2023 13:57:46 08/02/2023 18:03:46 Benign prostatic hyperplasia 669157008 N40.1 Incomplete emptying of urinary bladder 120473412 R39.14 [id number] Anthony Holley MD [address] [place] ([place]) [address] [place] [address] 09/03/2023 16:06:13 09/03/2023 16:55:41 Lower urinary tract symptoms due to benign prostatic hypertrophy 2782073255 9101 N40.1 Urine stre am interrupted 383840835 R39.12 Increased frequency of urination 106844828 R35.0 Urgent justin abdiel to urinate 23525461 R39.15 [id number] MD Yaron Scales [address] [place] ([place]) [address] [place] [address] 10/09/2023 10:04:27 10/09/2023 10:43:09 Benign prostatic hyperplasia 542125841 N40.1 Urinary symptoms 0468027 08 R35.1 Urinary incontinence 165 485288 R32 [id number] Raysa Biggs , [employer], AIRCRAFT INSTRUMENT TESTER 800 [facility] [place] ([place]) [address] [place] [phone] 11/23/2023 15:07:09 11/23/2023 15:55:27 Health Concerns Section Related Observation LastModified by Organization Detai ls LastModified Time None Recorded Concern Status LastModified by Organization Details LastModified Time None Recorded Advance Directives Directive N: Payers Encounter Date Sequence Insurance Name Policy Number Policy Minor Covered Member ID Minor Member ID Guarantor Name 08/02/2023 1 [employer] (MEDICARE REPLACEMENT/A DVANTAGE - HMO) [id number] Mode Gomez [id number] Mode Gomez 09/03/2023 1 [employer] (MEDICARE REPLACEMENT/A DVANTAGE - HMO) [id number] Mode Gomez [id number] Mode Gomez 10/09/2023 1 [employer] (MEDICARE REPLACEMENT/A DVANTAGE - HMO) [id number] Mode Gomez [id number] Mode Gomez 11/23/2023 1 [employer] (MEDICARE REPLACEMENT/A DVANTAGE - HMO) [id number] Mode Gomez [id number] Mode Gomez Notes Date Note Type Note Provider Name and Address Organization Details Recorded Time text/html The patient is a 73-year-old man who has a history of benign prostatic hyperplasia with lower urinary tract symptoms. On February 01, 2022, he underwent a cystoscopic exam and a transrectal ultrasound of the prostate. At that time, he was being treated with alfuzosin 10 mg ER daily and with finasteride 5 mg daily. On January 20, 2022, his IPSS was 26 indicating severe lower urinary tract symptoms. Cystoscopy revealed bilobar hyperplasia of the prostate. The ultrasound showed a prostate gland with a normal sonographic appearance and an estimated volume of 37 cubic centimeters. I discontinued the finasteride because the patient would not benefit. On 2023, the patient underwent a UroLift procedure. On June 04, 2023, the patient s IPSS was 23, indicating severe lower urinary tract symptoms. His most frequent symptoms were a sense of incomplete bladder emptying, daytime urinary frequency, and intermittency which he states occurred all the time. On June 04, 2023, the patient underwent another cystoscopic exam and transrectal ultrasound of the prostate. The cystoscopic exam showed bilobar hyperplasia of the prostate with a small median lobe centered on the right side. The estimated prostate volume on ultrasound was 36 cubic centimeters. The patient is here today for a second UroLift procedure.cristopher Holley MD [address], [address], [facility] 09/01/2023 14:58:24 4 text/html The patient is a 73-year-old man who has benign prostatic hyperplasia with lower urinary tract symptoms. He underwent a cystoscopic exam and a transrectal ultrasound of the prostate. The patient has bilobar hyperplasia of the prostate and the estimated prostate volume was 37 cubic centimeters. His IPSS was 26. On August 02, 2023, the patient underwent a UroLift procedure with four implants. Today, the patient s IPSS is 19, indicating moderate lower urinary tract symptoms. His most frequent symptom is daytime urinary intermittency. He also complains of daytime frequency and urgency more than half the time. He gets up once at night to urinate. On the Quality of Life Scale, he indicates that he is satisfied with his symptoms. The patient continues to take alfuzosin 10 mg ER daily. The patient is a 73-year-old man who has benign prostatic hyperplasia with lower urinary tract symptoms. He underwent a cystoscopic exam and a transrectal ultrasound of the prostate. The patient has bilobar hyperplasia of the prostate and the estimated prostate volume was 37 cubic centimeters. His IPSS was 26. On August 02, 2023, the patient underwent a UroLift procedure with four implants. Today, the patient s IPSS is 19, indicating moderate lower urinary tract symptoms. His most frequent symptom is daytime urinary intermittency. He also complains of daytime frequency and urgency more than half the time. He gets up once at night to urinate. On the Quality of Life Scale, he indicates that he is satisfied with his symptoms. The patient continues to take alfuzosin 10 mg ER daily. Anthony Holley MD [address] [place] [address], [phone], [place] [facility] 09/14/2023 16:00:10 4 text/html The patient is a 73-year-old man who has a history of benign prostatic hyperplasia with lower urinary tract symptoms. On February 01, 2022, he underwent a cystoscopic exam and a transrectal ultrasound of the prostate. At that time, he was being treated with alfuzosin 10 mg ER daily and with finasteride 5 mg daily. On January 20, 2022, his IPSS was 26, indicating severe lower urinary tract symptoms. Cystoscopy revealed bilobar hyperplasia of the prostate. The ultrasound showed a prostate with a normal sonographic appearance and an estimated volume of 37 cc. I discontinued the finasteride because the patient would not benefit based on the volume of his prostate. On 2023, the patient underwent a UroLift procedure. On June 04, 2023, the patient s IPSS was 23 indicating severe lower urinary tract symptoms. His most frequent symptoms were a sense of incomplete bladder emptying, daytime urinary frequency, and intermittency which he stated occurred all the time. On June 04, 2023, the patient underwent another cystoscopic exam and transrectal ultrasound of the prostate. The cystoscopic exam revealed bilobar hyperplasia of the prostate with a small median lobe centered on the right side. The estimated prostate volume was 36 cc. On August 02, 2023, the patient underwent another UroLift with 4 implants delivered. There was considerable bleeding after the procedure and the patient was discharged with a Berry catheter. 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 Today, the patient s IPSS is 21, indicating severe lower urinary tract symptoms. He gets up once at night to urinate. He has experienced urinary incontinence overnight. He does not have incontinence during the day.ra Anthony Holley MD [address] [place] [address], [phone], [facility] 10/14/2023 12:46:30 4 text/html Chief Complaint: Overactive bladderAssessment & Plan: Overactive bladder, BPH with LUTS status post UroLift-PSA due today. PVR 85 mL. Refill Gemtesa 75mg Qday x 1 year. Follow-up with Dr. Holley in 1 yearHistory of Present Illness: Patient is a 73-year-old gentleman that presents today for a follow-up appointment in regards to BPH with LUTS and overactive bladder symptoms. Patient is due for a PSA today as last PSA of November 2022 was 1.7. Patient had a UroLift procedure by Dr. Holley and his finasteride and alfuzosin were able to be stopped thereafter. He was trialed on Gemtesa 75mg Qday for his overactive bladder symptoms and incontinence. He reports that the Gemtesa 75mg Qday is working quite well for him. We will send refills to the pharmacy. He reports that he gets up 1 time a night to urinate. He is got a good urine stream and feels he empties his bladder well. His PVR today is 85 mL. He denies any hematuria, dysuria, suprapubic pain or flank pain.Review of systems:The patient denies nausea, vomiting, shortness of breath, and chest pain.Vitals, medical problems, medications, and allergies are noted below.Physical exam:The patient is alert and oriented. In no acute distress. Skin warm and dry.Extraocular movements are intact.Head normocephalicNormal hearingNo speech defectsRespirations are deep and regular.Abdomen is soft. There is no suprapubic or flank tenderness.There is no peripheral edema.Gait is normal and without defect. Raysa Biggs, DAVIE, AIRCRAFT INSTRUMENT TESTER [address] [place] [address], [phone], [facility] 11/23/2023 15:55:11
--- OUTSIDE RECORDS SUMMARY | 2024-05-24 19:38 | XMS_ITS | Referral Summary ---
Author Organization [facility] Address [address] [place] [address] Care Team Providers Care Excellence Coach Name Role Phone Davida Power MD Primary Care Provider Source Comments [facility],non-owned Affiliates and Associated Physician Practices is amultiple site organization consisting of ambulatory clinics and hospital sitesin [place], [place], [place] and [place]. This disclosure is being madepursuant to the Care Everywhere program and may not contain all information available regarding this patient. Last updated 17.[facility] [employer] Medications * Be aware that medications may [...] MG tablet Take by mouth. 06/29/2016 Active [place]-3 Fatty Acids (FISH OIL) 1000 MG capsule Take by mouth. 06/29/2016 Active diclofenac sodium EC (VOLTAREN) 75 MG tablet 06/09/2016 A ctive triamcinolone (NASACORT AQ) 55 MCG/ACT nasal inhaler 06/29/2016 Active Social History Tobacco Use Types Packs/Day Years [...] 06/29/2016 4:52 PM CDT Plan of Treatment Not on file Care Teams Excellence Coach Relationship Specialty Start Date End Date Davida Power MD [address] [place] [phone] PCP - General 09/03/13
--- OUTSIDE RECORDS SUMMARY | 2024-05-24 19:38 | XMS_ITS ---
Author Organization Unknown Address [address] [place] [phone] Phone Care Team Providers Care Proteomics Scientist Name Role Phone KONG QUINONEZN F Attending Unavailable Immunization Immunization Date Status Additional Notes Code Code System COVID-19, mRNA, LNP-S, PF, 3 0 mcg/0.3 mL dose 04/30/2020 Completed 208 CVX COVID-19, mRNA, LNP-S, PF, 3 0 mcg/0.3 mL dose 05/21/2020 Completed 208 CVX Results T4 FREE - Collect Date/Time: 04/30/2024 08:32 [facility] ID: [id number] [address] [place] [address], [id number] LOINC: 3024-7 Test Value Unit Reference Range Code Code System Flag T4, FREE 1.11 ng/dL L=0.78 H=2.19 3024-7 LOINC FSH - Collect Date/Time: 08:32 [facility] ID: [id number] [address] [place] [address], [phone] LOINC: 79738-4 Test Value Unit Reference Range Code Code System Flag FSH 7.8 1.5-12.4 51313-1 LOINC LH LUTEINIZING HORMONE - Col lect Date/Time: 04/30/2024 08:32 [facility] ID: [id number] [address] [place] [address], [phone] LOINC: 17565-8 Test Value Unit Reference Range Code Code System Flag LH 2.5 1.7-8.6 06297-4 LOINC COMPREHENSIVE METABOLIC PANE L - Collect Date/Time: 04/30/2024 08:32 [facility] ID: [id number] [address] [place], [place], [phone] LOINC: 72006-0 Test Value Unit Reference Range Code Code System Flag FASTING YES BUN 22 mg/dL L=7 H=20 3094-0 LOINC H CREATININE 0.90 mg/dL L=0.66 H=1.25 2160-0 LOINC GLUCOSE 97 mg/dL L=74 H=106 2345-7 LOINC SODIUM 138 mmol/L L=132 H=144 2951-2 LOINC POTASSIUM 4.1 mmol/L L=3.5 H=5.1 2823-3 LOINC CHLORIDE 104 mmol/L L=98 H=107 2075-0 LOINC CO2 27.0 mmol/L L=22.0 H=30.0 8-9 LOINC ANION GAP 11 L=10 H=20 34679-3 LOINC OSMOLALITY 289 mOs/kG L=280 H=296 01745-5 LOINC BUN/CREAT 24.4 3097-3 LOINC CALCIUM 9.3 mg/dL L=8.3 H=10.5 55133-5 LOINC AST 39 U/L L=15 H=46 1920-8 LOINC ALT 42 U/L L=9 H=72 1742-6 LOINC ALKALINE PHOS 72 U/L L=38 H=126 6768-6 LOINC TOTAL BILI 0.8 mg/dL L=0.2 H=1.3 1975-2 LOINC ALBUMIN 4.3 G/dL L=3.5 H=5.0 1751-7 LOINC TOTAL PROTEIN 7.6 g/L L=6.3 H=8.2 2885-2 LOINC A/G RATIO 1.3 05390-5 LOINC AGE 74 36903-1 LOINC eGFR NON-AFR 88 ml/min eGFR AFR AMER 106 ml/min CBC W/ DIFF - Collect Date/T jaycee: 04/30/2024 08:32 [facility] ID: [id number] [address] [place], [place], [phone] LOINC: 62555-6 Test Value Unit Reference Range Code Code System Flag WBC 4.7 10^3uL L=4.8 H=10.8 L RBC 4.30 10^6uL L=4.60 H=6.20 L HEMOGLOBIN 13.8 g/dL L=14.0 H=18.0 718-7 LOINC L HEMATOCRIT 40.6 VOL% L=42.0 H=52.0 4544-3 LOINC L MCV 94.4 fL L=80.0 H=94.0 H MCH 32.1 pg L=27.0 H=32.0 H MCHC 34.0 g/dL L=32.0 H=36.0 PLATELETS 183 10^3uL L=100 H=400 94309-9 LOINC RDW 11.9 % L=11.7 H=15.5 %GRAN 51.7 % L=40.0 H=70.0 42720-4 LOINC %LYMPH 36.6 % L=20.0 H=45.0 736-9 LOINC %MONO 7.7 % L=2.0 H=10.0 14241-9 LOINC %EOS 3.2 % L=0.0 H=6.0 713-8 LOINC %BASO 0.6 % L=0.0 H=3.0 706-2 LOINC #NEUT 2.4 10^3uL L=1.9 H=7.6 19642-5 LOINC #LYMPH 1.7 10^3uL L=0.9 H=4.9 27878-2 LOINC #MONO 0.4 10^3uL L=0.1 H=0.9 04766-7 LOINC #EOS 0.2 10^3uL L=0.0 H=0.6 712-0 LOINC #BASO 0.03 10^3uL L=0.00 H=0.10 95323-9 LOINC #IM GRANS 0.0 10^3uL L=0.0 H=7.0 87924-9 LOINC %IM GRANS 0.2 % L=0.0 H=5.0 82789-8 LOINC %NRB 0.0 L=0.0 H=0.2 93849-0 LOINC #NRB 0.000 L=0.000 H=0.012 11403-6 LOINC MANUAL DIFF NOT INDICATED RBC MORPH NOT INDICATED CORTISOL - Collect Date/Time : 04/30/2024 08:32 [facility] ID: [id number] [address] [place] [address], [phone] LOINC: 2143-6 Test Value Unit Reference Range Code Code System Flag COLLECTION DATE 04/30/24 COLLECTION TIME 0832 Cortisol 10.2 6.2-19.4 3-6 LOINC TSH - Collect Date/Time: 08:32 [facility] ID: [id number] [address] [place] [address], [id number] LOINC: 21471-0 Test Value Unit Reference Range Code Code System Flag TSH. 3.160 uIU/L L=0.470 H=4.680 20894-1 LOINC TESTOSTERONE FREE & TOTAL - Collect Date/Time: 04/30/2024 08:32 [facility] ID: [id number] [address] [place] [address], [id number] LOINC: Test Value Unit Reference Range Code Code System Flag Testosterone 726 757-728 8467-8 LOINC Free Testosterone(Direct) 5.6 6.6-18.1 2991-8 LOINC L Social History Type Status Start Date End Date Code Code Syst em Smoking History Former smoker 0561600 SNOMED CT Sex Male Hospital Discharge Instructions Should you have any questions prior to discharge, please contact a member of your healthcare team. If you have left the hospital and have any questions, please contact your primary care physician. Reason For Referral No Data Found Plan of Treatment COVID-19 Drive Thru Screen 02/19/2020 COVID-19 Drive Thru Screen 07/17/2020 Encounters Encounter Diagnosis Start Date Code Code Sys tem Hypothyroidism, unspecified 04/30/2024 SNOMED-CT Personal Care Team Section Performer Name Performer Role Active Date Inactive Da te JOSE TRIANA PCP - Primary care physician 2020-10-29 2021-07-08 JOSE TRIANA PCP - Primary care physician 2021-07-28
--- OUTSIDE RECORDS SUMMARY | 2024-05-24 19:38 | XMS_ITS | Patient Health Summary ---
Author Organization [facility] Address [address] [place] [address] Care Team Providers Care Sorter/Assay Tech Name Role Phone Davida Power MD Primary Care Provider Note from [facility],non-owned Affiliates and Associated Physician Practices is amultiple site organization consisting of ambulatory clinics and hospital sitesin [place], [place], [place] and [place]. This disclosure is being madepursuant to the Care Everywhere program and may not contain all information available regarding this patient. Last updated 17.[facility] Medications * Be aware that medications may not be up to date on this document. Alwaysverify current medications with the patient. * tamsulosin (FLOMAX) 0.4 MG capsule(Started 06/20/2016) * Misc Natural Products (GERMANIUM) 10 MG(Started 06/29/2016) Take by mouth. * terbinafine (LAMISIL) 250 MG tablet(Started 05/25/2016) * aspirin EC (ECOTRIN) 325 MG tablet(Started 06/29/2016) Take by mouth. * [place]-3 Fatty Acids (FISH OIL) 1000 MG capsule(Started 06/29/2016) Take by mouth. * diclofenac sodium EC (VOLTAREN) 75 MG tablet(Started 06/09/2016) * triamcinolone (NASACORT AQ) 55 MCG/ACT nasal inhaler(Started 06/29/2016) Social History Tobacco Use Types Packs/Day Years [...] Mass Index 28.8 06/29/2016 4:52 PM CDT Procedures * DERMATOPATHOLOGY(Performed 09/27/2022) * DERMATOPATHOLOGY(Performed 05/24/2017) * FL SWALLOWING FUNCTION STUDY(Performed 08/28/2016) Results * DERMATOPATHOLOGY (09/27/2022 12:00 AM CDT) Only the most recent of2 resultswithin the time period is included. Case Report Dermatopathology Report Case: [id number] Authorizing Provider: Aldo Wallis MD Collected: 09/27/2022 12:00 AM Ordering Location: [facility] DermPath Lab Received: 09/29/2022 11:56 AM Pathologist: Quyen Fulton MD Specimen: Skin, left shoulder 3 2:41 PM CDT DERMATOPATHOLOGY LABORATORY Final Diagnosis Specimen A. 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 Check Margins. 3 2:41 PM CDT DERMATOPATHOLOGY LABORATORY Gross Description Specimen A: Received is one formalin filled container labeled with the patient's name and designated left shoulder. The specimen consists of a shave biopsy measuring 4x3x2 mm. Jar 0. 3 2:41 PM CDT DERMATOPATHOLOGY LABORATORY Microscopic Description Specimen A. SKIN, [...] were obtained and reviewed. 3 2:41 PM CDT DERMATOPATHOLOGY LABORATORY Disclaimer An external and internal positive and negative controls are appropriate for the histochemical, immunohistochemical and immunofluorescence stain(s) in this case (if any), except where stated explicitly. The performance characteristics of the stain(s) cited in this report were developed and its performance characteristic determined by the Dermatopathology Laboratory at [facility], directed by Dr. Denny Zapata. These tests need not be, and therefore are not, approved by the [place] Food and Drug Administration. The tests are used for clinical purposes. Billing Codes Specimen Charges Stain Charges 50754 1 3 2:41 PM CDT DERMATOPATHOLOGY LABORATORY Embedded Images 3 2:41 PM CDT DERMATOPATHOLOGY LABORATORY Pathology/Cytolog y TISSUE SPECIMEN FROM SKIN / Unknown 09/27/2022 09/29/2022 11:56 AM CDT Aldo Wallis MD LAB - PATHOLOGY/CYTO LOGY ORDERABLES DERMATOPATHOLOGY LABORATORY [facility] - Department of Dermatology [address], [address] [phone] * FL SWALLOWING FUNCTION STUDY (08/28/2016 10:04 AM CDT) Anatomical Region Laterality Modality Chest Other Impressions 08/28/2016 11:38 AM CDT IMPRESSION: Fluoroscopic assistance was provided for a procedure performed by Speech Therapy. Please see the separate report by Speech Therapy for further details. Fluoroscopy Time: 84 seconds. Dictated by Kenyon Blanchard MD (Resident). This report was approved by Kenyon Blanchard M.D. on 08/28/2016 11:34 AM . I, Dr. DEBBI MONTES M.D. have personally reviewed and interpreted this examination/study. This report was electronically signed by DEBBI MONTES M.D. on 08/28/2016 11:38 AM . 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 FINDINGS/ IMPRESSION IMPRESSION: Fluoroscopic assistance was provided for a procedure performed by SpeechTherapy. Please see the separate report by Speech Therapy for furtherdetails. Fluoroscopy Time: 84 seconds. Dictated by Kenyon Blanchard MD (Resident). This report was approved by Kenyon Blanchard M.D. on 08/28/2016 11:34 AM. I, Dr. DEBBI MONTES M.D. have personally reviewed and interpreted thisexamination/study. This report was electronically signed by DEBBI MONTES M.D. on 08/28/201611:38 AM . Shawn Alex MD FLUOROSCOPY ORDERABL ES Care Teams Sorter/Assay Tech Relationship Specialty Start Date End Date Davida Power MD [address] [place] [phone] PCP - General 09/03/13
--- OUTSIDE RECORDS SUMMARY | 2024-05-24 19:39 | XMS_ITS ---
Author Organization Unknown Address [address] [place] [phone] Phone Care Team Providers Care Custom Harvester Name Role Phone KONG QUINONEZN F Attending Unavailable Immunization Immunization Date Status Additional Notes Code Code System COVID-19, mRNA, LNP-S, PF, 3 0 mcg/0.3 mL dose 04/30/2020 Completed 208 CVX COVID-19, mRNA, LNP-S, PF, 3 0 mcg/0.3 mL dose 05/21/2020 Completed 208 CVX Results CBC W/ DIFF - Collect Date/T jaycee: 01/11/2024 11:23 [facility] ID: [id number] [place] [address], [phone] LOINC: 70581-6 Test Value Unit Reference Range Code Code System Flag WBC 4.3 10^3uL L=4.8 H=10.8 L RBC 4.29 10^6uL L=4.60 H=6.20 L HEMOGLOBIN 14.1 g/dL L=14.0 H=18.0 718-7 LOINC HEMATOCRIT 40.9 VOL% L=42.0 H=52.0 4544-3 LOINC L MCV 95.3 fL L=80.0 H=94.0 H MCH 32.9 pg L=27.0 H=32.0 H MCHC 34.5 g/dL L=32.0 H=36.0 PLATELETS 159 10^3uL L=100 H=400 49301-3 LOINC RDW 12.1 % L=11.7 H=15.5 %GRAN 58.1 % L=40.0 H=70.0 36922-4 LOINC %LYMPH 30.9 % L=20.0 H=45.0 736-9 LOINC %MONO 8.3 % L=2.0 H=10.0 50497-4 LOINC %EOS 1.8 % L=0.0 H=6.0 713-8 LOINC %BASO 0.7 % L=0.0 H=3.0 706-2 LOINC #NEUT 2.5 10^3uL L=1.9 H=7.6 81158-2 LOINC #LYMPH 1.3 10^3uL L=0.9 H=4.9 93873-4 LOINC #MONO 0.4 10^3uL L=0.1 H=0.9 53653-4 LOINC #EOS 0.1 10^3uL L=0.0 H=0.6 712-0 LOINC #BASO 0.03 10^3uL L=0.00 H=0.10 71477-2 LOINC #IM GRANS 0.0 10^3uL L=0.0 H=7.0 70537-8 LOINC %IM GRANS 0.2 % L=0.0 H=5.0 79158-9 LOINC %NRB 0.0 L=0.0 H=0.2 96558-6 LOINC #NRB 0.000 L=0.000 H=0.012 90876-2 LOINC MANUAL DIFF NOT INDICATED RBC MORPH NOT INDICATED FERRITIN - Collect Date/Time : 01/11/2024 11:23 [facility] ID: [id number] [id number] [place] [address], [phone] LOINC: 2276-4 Test Value Unit Reference Range Code Code System Flag FERRITIN 41.6 ng/mL L=17.9 H=464 2276-4 LOINC T4 FREE - Collect Date/Time: 01/11/2024 11:23 [facility] ID: [id number] [place] [address], [phone] LOINC: 3024-7 Test Value Unit Reference Range Code Code System Flag T4, FREE 1.04 ng/dL L=0.78 H=2.19 3024-7 LOINC ANKUSH W REFLEX - Collect Date/ Time: 01/11/2024 11:23 [facility] ID: [id number] [address] [place] [address], [phone] LOINC: 5048-4 Test Value Unit Reference Range Code Code System Flag ANKUSH Direct Negative Negative 8061-[place] [address]-5 LOINC CRP - CARDIAC([facility]) - Col lect Date/Time: 01/11/2024 11:23 [facility] ID: [id number] [address] [place] [address], [id number] LOINC: 22709-0 Test Value Unit Reference Range Code Code System Flag C-Reactive Protein,Cardiac <0.15 0.00-3.00 41259-6 LOINC IRON PANEL - Collect Date/Ti me: 01/11/2024 11:23 [facility] ID: [id number] [address] [place] [address], [phone] LOINC: Test Value Unit Reference Range Code Code System Flag IRON 93 ug/dL L=49 H=181 2498-4 LOINC TIBC 304 ug/dL L=261 H=462 2500-7 LOINC %SATURATION 31 % L=13 H=45 2708-6 LOINC 25 HYDROXY VITAMIN D - Colle ct Date/Time: 01/11/2024 11:23 [facility] ID: [id number] [address] [place] [address], [phone] LOINC: Test Value Unit Reference Range Code Code System Flag VITAMIN D 39.1 ng/ml L=30.0 H=100 56625-7 LOINC TSH - Collect Date/Time: 03/2023 11:23 [facility] ID: [id number] [address] [place], [place], [phone] LOINC: 78590-3 Test Value Unit Reference Range Code Code System Flag TSH. 3.810 uIU/L L=0.470 H=4.680 41134-3 LOINC SED RATE - Collect Date/Time : 01/11/2024 11:23 [facility] ID: [id number] [address] [place], [place], [phone] LOINC: Test Value Unit Reference Range Code Code System Flag SED RATE 5 mm/hr L=0 H=15 HAND 3V LEFT - Completed: 11:16 LOINC: EXAM DESCRIPTION: ? ? HAND 3V RIGHT ? ? HAND 3V LEFT REASON FOR STUDY: chronic bilateral hand pain/ right 3rd digit infection 2 weeks ago Duration: chronic several years FINDINGS: Three views each hand submitted without comparison. Right hand: There are no erosions. There are no fractures. Ulnar positive variance is present. There is mild triscaphe and moderate basal thumb joint osteoarthritis. 1st and 2nd metacarpophalangeal and polyarticular interphalangeal joint osteoarthritis is present. There is no dorsal wrist soft tissue swelling. Left hand: There are no erosions. There are no fractures. Ulnar positive variance is present. There is mild triscaphe and moderate basal thumb joint osteoarthritis. 1st and 2nd metacarpophalangeal and polyarticular interphalangeal joint osteoarthritis is present. There is no dorsal wrist soft tissue swelling. IMPRESSION: ? ? No radiographic evidence of inflammatory arthritis. ? ? Polyarticular bilateral hand and wrist osteoarthritis, greatest at the basal thumb and 2nd metacarpophalangeal joints. THIS IS AN ELECTRONICALLY VERIFIED FINAL REPORT 01/11/2024 10:40 PM - Electronically signed by Pablo Vega M.D. MF: ERNESTINA Report ID: [id number] Reading Location: [id number] HAND 3V RIGHT - Completed: 03/12/2023 11:16 LOINC: EXAM DESCRIPTION: ? ? HAND 3V RIGHT ? ? HAND 3V LEFT REASON FOR STUDY: chronic bilateral hand pain/ right 3rd digit infection 2 weeks ago Duration: chronic several years FINDINGS: Three views each hand submitted without comparison. Right hand: There are no erosions. There are no fractures. Ulnar positive variance is present. There is mild triscaphe and moderate basal thumb joint osteoarthritis. 1st and 2nd metacarpophalangeal and polyarticular interphalangeal joint osteoarthritis is present. There is no dorsal wrist soft tissue swelling. Left hand: There are no erosions. There are no fractures. Ulnar positive variance is present. There is mild triscaphe and moderate basal thumb joint osteoarthritis. 1st and 2nd metacarpophalangeal and polyarticular interphalangeal joint osteoarthritis is present. There is no dorsal wrist soft tissue swelling. IMPRESSION: ? ? No radiographic evidence of inflammatory arthritis. ? ? Polyarticular bilateral hand and wrist osteoarthritis, greatest at the basal thumb and 2nd metacarpophalangeal joints. THIS IS AN ELECTRONICALLY VERIFIED FINAL REPORT 01/11/2024 10:40 PM - Electronically signed by Pablo Vega M.D. MF: ERNESTINA Report ID: [id number] Reading Location: [id number] Social History Type Status Start Date End Date Code Code Syst em Smoking History Former smoker [id number] SNOMED CT Sex Male Hospital Discharge Instructions [...] Diagnosis Start Date Code Code Sys tem Primary osteoarthritis, left hand 01/11/2024 SNOMED-CT Personal Care Team Section Performer Name Performer Role Active Date Inactive Da te JOSE TRIANA PCP - Primary care physician 2020-10-29 2021-07-08 JOSE TRIANA PCP - Primary care physician 2021-07-28 Imaging Narrative Notes
--- OUTSIDE RECORDS SUMMARY | 2024-05-24 19:39 | XMS_ITS | Clinical Summary ---
Author Organization [facility] Address [address] [phone] Phone Care Team Providers Care Roofing Machine Operator Name Role Phone Aldo Wallis MD Primary Care Provider [phone] Lois Healy APRN, SUPERVISOR MICROWAVE Unavailable Allergies No known active allergies Medications aspirin EC (ECOTRIN) 325 MG Tablet Delayed Response Take 325 mg by mouth daily. Active fish oil-omega-3 fatty acids 1000 MG Capsule Take 1,000 mg by mouth daily. Active tamsulosin (FLOMAX) 0.4 MG Capsule Take 0.4 mg by mouth daily. Active diclofenac (VOLTAREN) 75 MG Tablet Delayed Response Take 75 mg by mouth 3 times daily. Active Multiple Vitamin (MULTI-VITAMIN PO) Take 1 Tab by mouth daily. Active Triamcinolone Acetonide (NASACORT AQ NA) 1 Melvin by Nasal route daily. Reported on 06/05/2016 Active TURMERIC CURCUMIN PO Take 2 Tabs by mouth daily. Active Polyethyl Glycol-Propyl Glycol (SYSTANE OP) Place 1 Drop in affected eye(s) daily. BILATERAL EYES Active Vibegron (Gemtesa) 75 MG Tablet Take 75 mg by mouth daily. Active levothyroxine (SYNTHROID) 25 MCG Tablet Take 25 mcg by mouth daily. Active gabapentin (NEURONTIN) 300 MG Capsule Take 300 mg by mouth 4 times daily. Active atorvastatin (LIPITOR) 40 MG Tablet Take 40 mg by mouth daily. Active methylphenidate (RITALIN) 10 MG Tablet Take 10 mg by mouth daily. Active acetaminophen (TYLENOL) 500 MG Tablet Take 500 mg by mouth 4 times daily. Active Active Problems Problem Noted Date Diagnosed Date Grade II internal hemorrhoids 11/16/2023 Diverticulosis 11/16/2023 RYLEY (obstructive sleep apnea) 06/05/2016 Hx of adenomatous colonic polyps 02/23/2016 Family History Medical History Relation Name Comments Heart Attack Father Breast Cancer Mother Cancer Mother Cancer Paternal Uncle Prostate Cancer Paternal Uncle Relation Name Status Comments Father Mother Paternal Uncle Social History Tobacco Use Types Packs/Day Years Used Date Smoking Tobacco: Former Cigarettes Tobacco Cessation:Counseling Given: Not Answered Comments:quit 34 YRS AGO Alcohol Use Standard Drinks/Week Comments Not Currently 0 (1 standard drink = 0.6 oz pur e alcohol) socially Sexually Active Control Partners Comments Yes Female Sex and Gender Information Value Date Recorded Sex Assigned at Not on file Legal Sex Male 9:35 PM CDT Gender Identity Not on file Sexual Orientation Not on file Last Filed Vital Signs Vital Sign Reading Time Taken Comments Blood Pressure 125/88 01/23/2024 2:23 PM CW OPERATOR Pulse 47 01/23/2024 2:23 PM CW OPERATOR Temperature 36 C (96.8 F) 01/23/2024 2:23 PM CW OPERATOR Respiratory Rate 17 01/23/2024 2:23 PM CW OPERATOR Oxygen Saturation 96% 01/23/2024 2:23 PM CW OPERATOR Inhaled Oxygen Concentration - - Weight 79.8 kg (176 lb) 01/18/2024 9:42 AM CW OPERATOR Height 174 cm (5' 8.5 ) 01/18/2024 9:42 AM CW OPERATOR Body Mass Index 26.37 01/18/2024 9:42 AM CW OPERATOR Plan of Treatment Health Maintenance Due Date Last Done Comments Hepatitis C Virus (HCV) Screening 1950 TdaP Immunization 1950 Cologuard 01/14/2002 Immunochemical Fecal Occult Blood 01/14/2002 Pneumococcal Immunization (5 0+ years) (1 of 1 - PCV) 01/14/2002 Zoster Immunization (1 of 2) 01/14/2002 AAA Screening Ultrasound 01/14/2017 Influenza Immunization (#1) 2023 SARS-COV-2 Immunization ( season) 2023 05/21/2020, 04/30/2020 Respiratory Syncytial Virus (RSV) Immunization (Adult) (1 - 1-dose 75+ series) 01/14/2027 Colonoscopy 11/15/2033 11/16/2023, 06/06/2016 Colorectal Cancer Screening 11/15/2033 11/16/2023, 06/06/2016 Hepatitis B Immunization Aged Out No longer eligible based on patient's age to complete this topic Meningococcal Immunization (ACWY) Aged Out No longer eligible b ased on patient's age to complete this topic Rotavirus Immunization Aged Out No lo nger eligible based on patient's age to complete this topic Insurance Care Teams Roofing Machine Operator Relationship Specialty Start Date End Date Aldo Wallis MD [address] [place] [address] PCP - General Family Medicine 02/23/16 Lois Healy, SQL SSRS SSIS DEVELOPER, SUPERVISOR MICROWAVE [address] [place] [address] Nurse Practitioner Advanced Practice Nurse 02/23/16
--- OUTSIDE RECORDS SUMMARY | 2024-05-24 19:39 | XMS_ITS ---
Author Organization Unknown Address [address] [place] [phone] Phone Care Team Providers Care Forecast Analyst Name Role Phone AIDA PETERS Attending Unavailable KONG Altamirano Primary Unavailable Immunization Immunization Date Status Additional Notes Code Code System COVID-19, mRNA, LNP-S, PF, 3 0 mcg/0.3 mL dose 04/30/2020 Completed 208 CVX COVID-19, mRNA, LNP-S, PF, 3 0 mcg/0.3 mL dose 05/21/2020 Completed 208 CVX Results RESPIRATORY 4 PLEX COVID FLU RSV PCR - Collect Date/Time: 02/23/2023 14:29 [facility] ID: [id number] [place] [address], [phone] LOINC: 12591-0 Test Value Unit Reference Range Code Code System Flag SARS CoV2 PCR NEGATIVE FLU A PCR NEGATIVE FLU B PCR NEGATIVE RSV PCR NEGATIVE SEND TO [facility]? YES A Social History Type Status Start Date End Date Code Code Syst em Smoking History Former smoker [id number] SNOMED CT Sex Male Hospital Discharge Instructions [...] Diagnosis Start Date Code Code Sys tem CONTACT WITH AND SUSPECTED EXPOSURE TO COVID-19 2022 SNOMED-CT Personal Care Team Section Performer Name Performer Role Active Date Inactive Da te SCHUELER, JOSE PCP - Primary care physician 2020-10-29 2021-07-08 JOSE TRIANA PCP - Primary care physician 2021-07-28
--- NOTE | 2024-06-18 22:16 | WPDSLEEPSTUD ---
Sleep Study Date of Study: 05/24/24 Ordering Provider: Aldo Wallis MD Interpreting Physician: Wendy Ballard MD Sleep Study Type: Split Polysomnogram Height: 1.74 m Weight: 79.379 kg Body Mass Index: 26.2 Neck Circumference (inches): 15 [place]: 7 Reason for Sleep Study Witnessed apneas during colonoscopy, years of snoring Sleep History Mode Gomez is a 74-year-old man with history of years of loud snoring. His is a nurse. He had a colonoscopy and had witnessed apneas. He never awakens from sleep feeling short of breath. He never wakes at night with heartburn, belching or coughing.??He constantly snores, constantly snores loudly enough that others complain. He never has trouble sleeping when he has a cold. He never wakes up gasping for breath during the night. He constantly has breathing problems at night. He frequently sweats excessively at night. He never notices his heart pounding or beating irregularly during the night. He rarely falls asleep during the day. He never falls asleep involuntarily, never falls asleep while driving. He never experiences loss of muscle tone with strong emotion. He never has daytime difficulty at work due to excessive sleepiness. He never feels paralyzed on waking or falling asleep. He never experiences vivid dreams upon waking or falling asleep. He never feels afraid of going to sleep. He never has nightmares. He rarely recalls his dreams. He frequently has thoughts racing through his mind. He never feels sad or depressed. He occasionally feels anxiety. He occasionally notices parts of his body jerk. He occasionally kicks during the night. He never feels crawling or aching feelings in his legs. He never feels leg pain at night. He never has morning jaw pain, never grinds his teeth at night. He occasionally feels bothered by pain during the day, occasionally awakened by pain during the night. He frequently wakes up feeling stiff in the morning, and he rarely wakes feeling sore or achy. He frequently awakens with pain in his neck, spine, or joints. Normal bedtime is between 12 midnight and 2:00 a.m., falling asleep within 10-20 minutes, waking once at night to go to the bathroom. Wake time is between 6:30 a.m. and 7:30 a.m.. He typically gets between 6 and 7 hours of sleep per night. He keeps the same schedule on weekends. He cell in takes naps during the day. A short nap lasting 10-15 minutes may be refreshing. Without using CPAP he will be drowsy all day after waking. Consistently wakes up feeling refreshed when he uses CPAP. Habits:??Tobacco:quit 30 years ago Caffeine: none Alcohol: none Recreational substances: none FORMERLY [facility], 1928–1983 Past Medical History Medical History Cataract Sinus congestion Head ache Skin lesion of face Ascending aortic aneurysm Hyperglycemia Night sweats ADD (attention deficit disorder) Disorganized thought process Change in pigmented skin lesion of face BMI 26.0-26.9,adult Seasonal allergies Subacromial bursitis Biceps rupture, proximal Arthritis Hypothyroidism Sleep apnea Hearing loss Vision abnormalities Injury of right shoulder Surgical History Surgical History S/P lumbar fusion History of bladder surgery Urolift History of back surgery History of arthroscopy of left shoulder History of arthroscopy of left knee Family History Family History Unknown Diabetes mellitus Hypertension Cancer Arthritis Father Acute myocardial infarction Mother Diabetes mellitus Breast cancer Sibling No problems noted. Other Family history of coronary artery disease Social History Social History Smoking status: Former smoker Tobacco type: cigarettes Second hand tobacco smoke exposure: No Smoking end date: 03/12/82 Alcohol intake: current Drinks per week: 6 Substance use: current Substance use type: marijuana Lack of Transportation: No Lack of Food: Never True Current Housing: I Have Housing Concerned About Future Housing: No Difficulty Paying Gas/Electric Bills: No Difficulty Paying for Meds: No Currently Unemployed: No Education: High School Diploma/GED Living arrangements: with family Occupation/Education: retired 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 Gender identity (if verbalized by the patient): Male Medications Home Medications ?Medication ?Instructions ?Recorded ?Confirmed ?Type fexofenadine-pseudoephedrine ER 1 tablet PO DAILY #90 tabs 12/08/19 04/28/24 Rx 180 mg-240 mg tablet,ext.release 24 hr (Kristen-D 24 Hour) multivitamin 1 tablet PO DAILY #90 tabs 12/08/19 04/28/24 Rx atorvastatin 40 mg tablet 40 mg PO DAILY #90 tabs 12/27/23 04/28/24 Rx acetaminophen 500 mg tablet 500 mg PO Q6H 01/10/24 04/28/24 History diclofenac sodium 1 % topical gel 4 g topical QID #500 grams 01/31/24 04/28/24 Rx levothyroxine 25 mcg tablet See Rx Instructions .Route 04/21/24 04/28/24 Rx .COMPLEX #90 tabs diclofenac sodium 75 mg See Rx Instructions .Route 05/29/24 Rx tablet,delayed release .COMPLEX #60 tabs methylphenidate HCl 10 mg tablet 10 mg PO BID #60 tabs 05/29/24 Rx gabapentin 300 mg capsule See Rx Instructions .Route 06/13/24 Rx .COMPLEX #120 caps Sleep Procedure A full night polysomnogram using the [employer] multi-channel system recorded the standard physiologic parameters including EEG, EOG, submentalis EMG, anterior tibialis EMG, EKG, body position, nasal and oral airflow using nasal pressure sensor and thermistor. Respiratory parameters of chest and abdominal movements were recorded with Respiratory Inductance Plethysmography belts. Oxygen saturation was recorded by pulse oximetry. Video monitoring was also performed. Sleep stages, periodic limb movements, and EEG arousals were scored in 30 second epochs according to the criteria of the AASM Scoring Manual. The Apnea-Hypopnea Index was calculated using CMS guidelines for definition of hypopnea with 4% O2 desaturations while scoring respiratory events. He met criteria to start CPAP, the apnea-hypopnea index was 19.7 with desaturation to 78%. He used a medium ResMed AirFit F20 fullface mask with heated humidity and a final pressure of CPAP 6 cm. The starting pressure was CPAP 5 cm. The patient had a residual apnea-hypopnea index of 1.9 and a minimum saturation of 89%. At CPAP 6 cm, he spent 139.5 minutes in bed, 15.5 minutes awake, 68.5 minutes in non-REM and 55.5 minutes in REM. Sleep efficiency was 89%. He had REM in the left lateral position. The patient did not have supine REM. During the baseline, the supine index was significantly higher. It is possible that he may need a higher pressure in supine sleep. Sleep Architecture During the diagnostic portion of the study, the total recording time was 198.4 minutes. The total sleep time was 146.5 minutes. Sleep latency was 14.4 minutes. REM latency was 167.0 minutes. Sleep Efficiency was 73.8%. The patient had 20 awakenings for an awakening index of 8.2. Wake after sleep onset time was 37.5 minutes. The patient spent 19.5 minutes, 13.3% of total sleep time in Stage N1. The patient spent 124.5 minutes, 85.0% in Stage N2. The patient spent 0.5 minutes, 0.3% in Stage N3. The patient spent 2.0 minutes, 1.4% in Stage REM sleep. At 02:34:37 AM the patient was placed on PAP treatment and was titrated at pressures ranging from CPAP 5 cm to 6 cm. During the treatment portion of the study, the total recording time was 227.3 minutes. The total sleep time was 181.0 minutes. Sleep latency was 31.0 minutes. REM latency was 22.0 minutes. Sleep Efficiency was 79.6%. Wake after Sleep Onset time was 15.0 minutes. The patient spent 9.5 minutes, 5.2% of total sleep time in Stage N1. The patient spent 109.0 minutes, 60.2% in Stage N2. The patient spent no time in Stage N3. The patient spent 62.5 minutes, 34.5% in Stage REM. Respiratory Analysis During the diagnostic portion of the study, the patient had 38 hypopneas, 7 obstructive apneas, 3 mixed apneas, and no central apneas for an overall Apnea Hypopnea Index of 19.7 events per hour. The REM Apnea Hypopnea Index was 90.0. The NREM Apnea Hypopnea Index was 18.7. The patient had a Central Apnea Hypopnea Index of 0. There were no Respiratory Effort Related Arousals. The Respiratory Disturbance Index is 23.3 events per hour. There was no evidence of Chirag-Meza Respirations. During the treatment portion of the study, the patient had 3 hypopneas, no obstructive apneas, no mixed apneas, and 2 central apneas for an overall Apnea Hypopnea Index of 1.7 events per hour. The REM Apnea Hypopnea Index was 2.9. The NREM Apnea Hypopnea Index was 1.0. The patient had a Central Apnea Hypopnea Index of 0.7. There were no Respiratory Effort Related Arousals. The Respiratory Disturbance Index is 3.6 events per hour. There was no evidence of Chirag-Meza Respirations. Arousals During the diagnostic portion of the study, there were a total of 130 arousals for an arousal index of 53.2. There were 21 respiratory arousals for an index of 8.6. There were 54 periodic limb movement arousals for an index of 22.1. There were 7 isolated limb movement arousals for an index of 2.9. There were 49 spontaneous arousals for an index of 20.1. During the treatment portion of the study, there were a total of 49 arousals for an index of 16.2. There were 1 respiratory arousals for an index of 0.3. There were 13 periodic limb movement arousals for an index of 4.3. There were 13 isolated limb movement arousals for an index of 4.3. There were 25 spontaneous arousals for an index of 8.3. Periodic Limb Movements During the diagnostic portion of the study, the patient had 14 isolated limb movements with an index of 5.7. The patient had 169 periodic limb movements with an index of 69.2. The patient had a total of 183 limb movements with a total limb movement index of 74.9. During the treatment portion of the study, the patient had 26 isolated limb movements with an index of 8.6. The patient had 104 periodic limb movements with an index of 34.5. The patient had a total of 130 limb movements with a total limb movement index of 43.1. Oximetry Data During the diagnostic portion of the study, the patient had an average oxygen saturation of 91% in wake with a minimum oxygen saturation of 81% and a maximum oxygen saturation of 96%. The patient had an average oxygen saturation of 91.3% in sleep with a minimum oxygen saturation of 78% and a maximum oxygen saturation of 96%. The patient had 55 oxygen desaturations resulting in an Oxygen Desaturation Index of 22.5. The patient spent 7.4 minutes, 3.9% of total sleep time with an oxygen saturation less than 88%. During the treatment portion of the study, the patient had an average oxygen saturation of 92.9% in wake with a minimum oxygen saturation of 91% and a maximum oxygen saturation of 97%. The patient had an average oxygen saturation of 93% in sleep with a minimum oxygen saturation of 89% and a maximum oxygen saturation of 96%. The patient had 10 oxygen desaturations resulting in an Oxygen Desaturation Index of 3.3. The patient spent no time with an oxygen saturation less than 88%. Snoring Profile Snoring was not noted. Cardiac Profile During the diagnostic portion of the study, the EKG showed normal sinus rhythm. The average pulse rate was 53.2 bpm. The minimum pulse rate was 47 bpm. The maximum pulse rate was 73 bpm. No arrhythmias noted. During the treatment portion of the study, the EKG showed normal sinus rhythm. The heart rates were not reported by the software. No arrhythmias noted. EEG Profile EEG was unremarkable, no evidence of seizures. Assessment and Plan Assessment and Plan (1) RYLEY (obstructive sleep apnea): Code(s): G47.33 - Obstructive sleep apnea (adult) (pediatric) Status: Acute Assessment and Plan: This split night sleep study on 05/24/2024 shows moderate obstructive sleep apnea, an apnea-hypopnea index of 19.7 with desaturation to 78% during the baseline with only 2 minutes of REM. Events were much worse in the supine position, the supine AHI was 65.7, non-supine AHI was 1.1. Events were eliminated using a medium ResMed AirFit F20 fullface mask with heated humidity and a final pressure of CPAP 6 cm. The patient had a residual apnea-hypopnea index of 1.9 and a minute minimum saturation of 89%. At CPAP 6 cm, he spent 139.5 minutes in bed, 15.5 minutes awake, 68.5 minutes in non-REM and 55.5 minutes in REM. Sleep efficiency was 89%. He had REM in the left lateral position.The patient should be prescribed this ResMed equipment as well as tubing, filters and reservoir. This should be used with all episodes of sleep. Compliance should be reviewed within 31-90 days of starting therapy for usage greater than 4 hours per night greater than 70% of the nights. The patient should be asked about symptoms such as excessive daytime sleepiness, quality of sleep, decreased nocturia, increased mental functioning such as memory, mood, and concentration. During this titration, CPAP was increased from 5 cm to 6 cm. This eliminated events however he slept in the left lateral position for the last half of the night. It is possible that in the supine position he could need more pressure. His supine AHI was 65 during the baseline and the nonsupine AHI was 1.1. CPAP pressures are not increased unless there is evidence to support doing so. Patient should be followed closely for his response to therapy. The patient had constant limb movements especially during the 1st portion of the night. His limb movement arousal index was elevated on the baseline, 22.1, and during the titration the limb movement arousal index was 4.3, normal. His sleep questionnaire indicates occasional jerking and occasional kicking but no problem with uncomfortable feelings in his legs at night. Given his excellent response using PAP with a decrease in the limb movement arousal index I would not bother with checking ferritin at this point. If he does not have a great response to PAP, does not feel fully refreshed on waking consider evaluating for anemia. His leg movements may be contributing to fragmentation of sleep. Data The data obtained during this sleep study is adequate for interpretation. Certification This sleep study has been reviewed by a board certified sleep medicine physician.
[2024-06-18 22:41] VITALS: BMI 26.2
== END 2024-05-25 07:00 | disposition home or self-care (01) ==
PROVIDERS: PCP Family Medicine; Visit Provider Family Medicine
DX: G47.33 Obstructive sleep apnea (adult) (pediatric) (principal)
CPT/HCPCS: 95811